=== PATIENT | female | born 2000 | race American Indian/Alaskan Native ===

== ENCOUNTER 2021-12-25 11:28 | Inpatient (IN) | payer MEDICAID ==
[2021-12-25] MEDS ORDERED: MAGNESIUM SULFATE 4 GM/100 ML BAG IV ONE ×2 (12:54→15:24)
[2021-12-25] MEDS ORDERED: hydrALAZINE 20 MG/1 ML INJ IV PRN (12:54)
[2021-12-25] MEDS ORDERED: LACTATED RINGERS 1,000 ML IV SCH (13:00)
--- NOTE | 2021-12-25 13:00 | History and Physical Report ---
History of Present Illness Date of examination: 12/25/21 Date of admission: 12/25/21 11:28 Chief complaint: sent by GREGOR here History of present illness: at 32.6wks by LMP c/w U/S and care at [facility] in [place]. Pt sent by [facility] due to elevated BP and the need to PIH evaluation. Pt admits to movement x2 earlier today but not now. Pt also denies LOF or vag bleed or headache. Pt denies contractions. Pt states she was sent by [facility] for BP eval and also due to both babies having a lot of fluid. Pt does not desire to know the sex of the babies until delivered. Past History Past Medical History: asthma, other (Sickle cell trait, Bipolar DO on no meds) Past Surgical History: no surgical history Social history: no significant social history - Obstetrical History Expected Date of Delivery: 02/13/22 Actual Gestation: 32 Week(s) 6 Day(s) : 1 Number of Living Children: 0 Medications and Allergies Allergies Allergy/AdvReac Type Severity Reaction Status Date / Time No Known Allergies Allergy Verified 12/25/21 12:32 Home Medications Medication Instructions Recorded Confirmed Last Taken Type Ferrous Sulfate [Iron 325 MG] 325 mg PO DAILY 12/25/21 12/25/21 1 Week Ago History ~12/18/21 Vit No.179/Iron/Folic 1 each PO DAILY 12/25/21 12/25/21 2 Weeks Ago History [ Tablet] ~12/11/21 Active Meds: Active Medications Betamethasone Acet/Betameth SodPhos (Betamet Acet/Betamet Na Ph 6 Mg/Ml Inj 5 Ml Mdv) 12 mg IM Q24HR MIKAYLA Stop: 12/27/21 10:01 Hydralazine HCl (Hydralazine 20 Mg/1 Ml Inj) 5 mg IV Q30MIN PRN PRN Reason: Hypertension Lactated Ringer's (Lactated Ringers) 1,000 mls @ 125 mls/hr IV DIRECT MIKAYLA Magnesium Sulfate (Magnesium Sulfate 4gm/100ml) 4 gm in 100 mls @ 300 mls/hr IV ONCE ONE Stop: 12/25/21 13:13 Magnesium Sulfate (Magnesium Sulfate 40gm/1000ml) 40 gm in 1,000 mls @ 50 mls/hr IV DIRECT MIKAYLA Labetalol HCl (Labetalol 20 Mg/4 Ml Inj) 20 mg IV ONCE ONE Stop: 12/25/21 12:55 Review of Systems All systems: negative (sent by [facility]) - Vital Signs Vital signs: Vital Signs Temp Pulse Resp BP 98.7 F 107 H 18 136/82 12/25/21 12:50 12/25/21 12:50 12/25/21 12:50 12/25/21 12:50 Temp Pulse Resp BP Pulse Ox 98.7 F 107 H 18 136/82 12/25/21 12:50 12/25/21 12:50 12/25/21 12:50 12/25/21 12:50 - Physical Exam Breasts: Positive: deferred Lungs: Positive: Normal air movement Abdomen: Positive: soft Genitourinary (Female): Positive: normal external genitalia Vagina: Positive: normal moisture Uterus: Positive: enlarged (twin gestation) Extremities: Positive: normal - Obstetrical FHR: category 1 Uterine Contraction Monitor Mode: External Cervical Dilatation: 2 (cervix soft) Cervical Effacement Percentage: 70 station: 0 Uterine Contraction Pattern: Irregular Uterine Contraction Intensity: Moderate Results Result Diagrams: 12/25/21 12:45 12/25/21 12:45 All other labs normal. Assessment and Plan Twin di/di gestation with polyhydramnios, cause unknown and elevated BP in clini c; Now in latent labor; Hypokalemia noted on labs 1. Direct admit by [facility] labs sent and 24hr protein collection started 2. Will give mag sulfate for tocolysis x24hrs until steroids received; PTL precaution given and both fetuses vtx/vtx 3. Will give colace 100mg bid stool softener 4. K-dur to replete potassium 5. Delivery plan given and pt agrees.
[2021-12-25 14:16] LABS: Basophils % (Auto) 0.2 % (0.0-1.8); Eosinophils % (Auto) 0.3 % (0.0-4.3); Hematocrit 36.2 % (30.3-42.9); Hemoglobin 11.6 gm/dl (10.1-14.3); Lymphocytes # (Auto) 1.1 K/mm3 (1.2-5.4); Lymphocytes % (Auto) 11.9 % (13.4-35.0); Mean Corpuscular HGB Conc 32 % (30-34); Mean Corpuscular Volume 80 fl (79-97); Monocytes # (Auto) 0.9 K/mm3 (0.0-0.8); Monocytes % (Auto) 10.4 % (0.0-7.3); Platelet Count 338 K/mm3 (140-440); Red Cell Distribution Width 17.1 % (13.2-15.2)
[2021-12-25 14:23] LABS: Alanine Aminotransferase 8 units/L (7-56); Albumin 3.8 g/dL (3.9-5); Blood Urea Nitrogen 3 mg/dL (7-17); Hemolysis Index 2; Uric Acid 4.1 mg/dL (3.5-7.6)
[2021-12-25 14:37] LABS: BUN/Creatinine Ratio 6
[2021-12-25] MEDS ORDERED: BETAMET ACET/BETAMET NA PH 6 MG/ML INJ 5 ML MDV IM ONE (15:24)
[2021-12-25] MEDS: BETAMET ACET/BETAMET NA PH 6 MG/ML INJ 5 ML MDV IM SCH (16:00)
[2021-12-25] MEDS: MAGNESIUM SULFATE 40GM/1000ML 40 GM/1,000 ML BAG IV SCH (16:40)
[2021-12-25] MEDS ORDERED: POTASSIUM CHLORIDE ER 20 MEQ TAB PO SCH (17:00)
[2021-12-25] MEDS ORDERED: DOCUSATE SODIUM 100 MG CAP PO PRN (18:10)
--- NOTE | 2021-12-26 01:32 | Ultrasound Report ---
US OB limited INDICATION / CLINICAL INFORMATION: jori COMPARISON: None available. TECHNIQUE: Using a transcutaneous probe, multiple grayscale, color Doppler, and spectral Doppler imag es of the uterus and fetus were captured and stored. FINDINGS: Twin A lies in cephalic position with heart rate 133 bpm. Largest vertical pocket is 7.8 cm, within normal limits. Estimated gestational age is 33 weeks 0 days with EDC of 02/13/2022 based on LMP of 05/09/2021. Twin B lies in cephalic position with heart rate 135 bpm. JORI normal measuring 7.7 cm greatest pocket. IMPRESSION: 1. Twin gestation demonstrates active heart rate and normal JORI. Signer Name: Moise Tracy II, MD Signed: 12/26/2021 1:28 AM Workstation Name: [id number]
--- NOTE | 2021-12-26 08:22 | Event Note ---
Date: 12/26/21 Mg++ level was noted to be 9.3 at 23:59 yesterday. Upon further investigation, the plater supervisor may have drawn that sample form the vein that the MgSO4 infusion was being administered. Repeat Mg++ level was 4.3. Clinically, I do not suspect magnesium toxicity.
[2021-12-26] MEDS: POTASSIUM CHLORIDE ER 20 MEQ TAB PO SCH ×3 (09:41→18:34)
[2021-12-26] MEDS ORDERED: LACTATED RINGERS 1,000 ML ONE (11:08)
[2021-12-26 14:49] LABS: Creatinine,Urine 42.1 mg/dL (0.1-20.0)
[2021-12-26] MEDS: MAGNESIUM SULFATE 40GM/1000ML 40 GM/1,000 ML BAG IV SCH (14:52)
[2021-12-26] MEDS: BETAMET ACET/BETAMET NA PH 6 MG/ML INJ 5 ML MDV IM SCH (16:53)
[2021-12-26] MEDS ORDERED: PE/MO/PET,WH 10 APPLIC/28 GM TUBE PR PRN (17:20)
[2021-12-26 20:25] VITALS: BP 135/73
[2021-12-26] MEDS ORDERED: FAMOTIDINE 20 MG TAB PO SCH (22:00)
--- NOTE | 2021-12-26 22:31 | Progress Note ---
Assessment and Plan - Patient Problems (1) 32 week prematurity Status: Acute Plan to address problem: care is up-to-date at [facility]. GBS culture is pending. The patient received betamethasone x2. (2) , twins, antepartum Status: Acute Plan to address problem: This is a twin gestation that is dichorionic/diamniotic. She is followed by maternal- medicine. Cervix has been stable at 2 cm dilated. (3) Pre-eclampsia in third trimester Status: Acute Plan to address problem: Patient's blood pressures have been <=140/90. 24 urine protein is 603 mg. Therefore, this patient fulfills the contemporary criteria for the diagnosis of preeclampsia. There are no headaches, diplopia, right upper quadrant pain, or scotomata. There are no blood pressures that are consistently >=160/110. Therefore, I do not believe that this patient has severe features. At this time, I recommend delivery at 37 weeks gestation and lieu of this new diagnosis of preeclampsia. However, if the clinical scenario changes or this patient has severe features, delivery will be earlier. Discharge home today. Follow-up with maternal- medicine next week. Subjective - Subjective Date of service: 12/26/21 Principal diagnosis: Preeclampsia Interval history: Patient's blood pressures have been <=140/90. 24 urine protein is 603 mg. Therefore, this patient fulfills the contemporary criteria for the diagnosis of preeclampsia. There are no headaches, diplopia, right upper quadrant pain, or scotomata. There are no blood pressures that are consistently >=160/110. Therefore, I do not believe that this patient has severe features. There are no contractions felt. There is good movement x2. Objective - Vital Signs Vital Signs: Vital Signs - 12hr 12/26/21 12/26/21 12/26/21 10:30 10:35 10:40 Temperature Pulse Rate 100 H 102 H 105 H Blood Pressure O2 Sat by Pulse 99 98 99 Oximetry O2 Sat by Pulse Oximetry [ Bilateral Throughout] 12/26/21 12/26/21 12/26/21 10:45 10:50 10:55 Temperature Pulse Rate 106 H 107 H 105 H Blood Pressure O2 Sat by Pulse 98 99 99 Oximetry O2 Sat by Pulse Oximetry [ Bilateral Throughout] 12/26/21 12/26/21 12/26/21 11:00 11:05 11:10 Temperature Pulse Rate 107 H 109 H 110 H Blood Pressure O2 Sat by Pulse 99 98 100 Oximetry O2 Sat by Pulse Oximetry [ Bilateral Throughout] 12/26/21 12/26/21 12/26/21 11:15 11:20 11:24 Temperature Pulse Rate 105 H 103 H 112 H Blood Pressure 139/70 O2 Sat by Pulse 99 99 Oximetry O2 Sat by Pulse Oximetry [ Bilateral Throughout] 12/26/21 12/26/21 12/26/21 11:25 11:30 11:35 Temperature Pulse Rate 102 H 107 H 105 H Blood Pressure O2 Sat by Pulse 98 98 100 Oximetry O2 Sat by Pulse Oximetry [ Bilateral Throughout] 12/26/21 12/26/21 12/26/21 11:40 11:45 11:50 Temperature Pulse Rate 106 H 102 H 103 H Blood Pressure O2 Sat by Pulse 100 100 99 Oximetry O2 Sat by Pulse Oximetry [ Bilateral Throughout] 12/26/21 12/26/21 12/26/21 11:55 12:00 12:05 Temperature Pulse Rate 106 H 111 H 107 H Blood Pressure O2 Sat by Pulse 99 100 100 Oximetry O2 Sat by Pulse Oximetry [ Bilateral Throughout] 12/26/21 12/26/21 12/26/21 12:10 12:15 12:20 Temperature Pulse Rate 117 H 108 H 104 H Blood Pressure O2 Sat by Pulse 100 99 99 Oximetry O2 Sat by Pulse Oximetry [ Bilateral Throughout] 12/26/21 12/26/21 12/26/21 12:24 12:25 12:30 Temperature Pulse Rate 108 H 99 H 106 H Blood Pressure 136/68 O2 Sat by Pulse 99 100 Oximetry O2 Sat by Pulse Oximetry [ Bilateral Throughout] 12/26/21 12/26/21 12/26/21 12:35 12:40 12:45 Temperature Pulse Rate 102 H 102 H 103 H Blood Pressure O2 Sat by Pulse 99 100 100 Oximetry O2 Sat by Pulse Oximetry [ Bilateral Throughout] 12/26/21 12/26/21 12/26/21 12:50 12:55 13:00 Temperature Pulse Rate 100 H 114 H 110 H Blood Pressure O2 Sat by Pulse 100 100 100 Oximetry O2 Sat by Pulse Oximetry [ Bilateral Throughout] 12/26/21 12/26/21 12/26/21 13:05 13:10 13:15 Temperature Pulse Rate 121 H 121 H 108 H Blood Pressure O2 Sat by Pulse 99 99 100 Oximetry O2 Sat by Pulse Oximetry [ Bilateral Throughout] 12/26/21 12/26/21 12/26/21 13:20 13:24 13:25 Temperature Pulse Rate 111 H 108 H 113 H Blood Pressure 135/77 O2 Sat by Pulse 99 100 Oximetry O2 Sat by Pulse Oximetry [ Bilateral Throughout] 12/26/21 12/26/21 12/26/21 13:30 13:35 13:40 Temperature Pulse Rate 109 H 108 H 107 H Blood Pressure O2 Sat by Pulse 100 100 100 Oximetry O2 Sat by Pulse Oximetry [ Bilateral Throughout] 12/26/21 12/26/21 12/26/21 13:45 13:50 13:55 Temperature Pulse Rate 107 H 111 H 108 H Blood Pressure O2 Sat by Pulse 100 100 100 Oximetry O2 Sat by Pulse Oximetry [ Bilateral Throughout] 12/26/21 12/26/21 12/26/21 14:00 14:05 14:10 Temperature Pulse Rate 110 H 107 H 110 H Blood Pressure O2 Sat by Pulse 100 100 100 Oximetry O2 Sat by Pulse Oximetry [ Bilateral Throughout] 12/26/21 12/26/21 12/26/21 14:15 14:20 14:25 Temperature Pulse Rate 112 H 112 H 107 H Blood Pressure 122/76 O2 Sat by Pulse 100 100 99 Oximetry O2 Sat by Pulse Oximetry [ Bilateral Throughout] 12/26/21 12/26/21 12/26/21 14:30 14:35 14:40 Temperature Pulse Rate 108 H 111 H 105 H Blood Pressure O2 Sat by Pulse 100 100 100 Oximetry O2 Sat by Pulse Oximetry [ Bilateral Throughout] 12/26/21 12/26/21 12/26/21 14:45 14:50 14:55 Temperature Pulse Rate 104 H 107 H 109 H Blood Pressure O2 Sat by Pulse 100 100 100 Oximetry O2 Sat by Pulse Oximetry [ Bilateral Throughout] 12/26/21 12/26/21 12/26/21 15:00 15:05 15:10 Temperature Pulse Rate 111 H 104 H 110 H Blood Pressure O2 Sat by Pulse 100 100 100 Oximetry O2 Sat by Pulse Oximetry [ Bilateral Throughout] 12/26/21 12/26/21 12/26/21 15:15 15:20 15:24 Temperature Pulse Rate 110 H 109 H 105 H Blood Pressure 130/78 O2 Sat by Pulse 100 100 Oximetry O2 Sat by Pulse Oximetry [ Bilateral Throughout] 12/26/21 12/26/21 12/26/21 15:25 15:30 15:35 Temperature Pulse Rate 105 H 109 H 105 H Blood Pressure O2 Sat by Pulse 100 100 100 Oximetry O2 Sat by Pulse Oximetry [ Bilateral Throughout] 12/26/21 12/26/21 12/26/21 15:40 15:45 15:50 Temperature Pulse Rate 108 H 111 H 109 H Blood Pressure O2 Sat by Pulse 100 100 100 Oximetry O2 Sat by Pulse Oximetry [ Bilateral Throughout] 12/26/21 12/26/21 12/26/21 15:55 16:00 16:05 Temperature Pulse Rate 108 H 108 H 107 H Blood Pressure O2 Sat by Pulse 100 100 100 Oximetry O2 Sat by Pulse Oximetry [ Bilateral Throughout] 12/26/21 12/26/21 12/26/21 16:10 16:15 16:20 Temperature Pulse Rate 108 H 107 H 107 H Blood Pressure O2 Sat by Pulse 100 100 100 Oximetry O2 Sat by Pulse Oximetry [ Bilateral Throughout] 12/26/21 12/26/21 12/26/21 16:24 16:25 16:30 Temperature Pulse Rate 108 H 109 H 112 H Blood Pressure 138/83 O2 Sat by Pulse 100 100 Oximetry O2 Sat by Pulse Oximetry [ Bilateral Throughout] 12/26/21 12/26/21 12/26/21 16:33 16:35 16:40 Temperature Pulse Rate 52 L 110 H 117 H Blood Pressure O2 Sat by Pulse 81 L 100 100 Oximetry O2 Sat by Pulse Oximetry [ Bilateral Throughout] 12/26/21 12/26/21 12/26/21 16:45 16:50 16:55 Temperature Pulse Rate 108 H 107 H 120 H Blood Pressure O2 Sat by Pulse 100 100 100 Oximetry O2 Sat by Pulse Oximetry [ Bilateral Throughout] 12/26/21 12/26/21 12/26/21 17:14 17:19 17:24 Temperature Pulse Rate 72 109 H 107 H Blood Pressure 134/78 O2 Sat by Pulse 79 L 100 99 Oximetry O2 Sat by Pulse Oximetry [ Bilateral Throughout] 12/26/21 12/26/21 12/26/21 17:29 17:30 17:34 Temperature Pulse Rate 104 H 104 H 102 H Blood Pressure O2 Sat by Pulse 99 89 99 Oximetry O2 Sat by Pulse Oximetry [ Bilateral Throughout] 12/26/21 12/26/21 12/26/21 17:39 17:44 17:49 Temperature Pulse Rate 109 H 102 H 107 H Blood Pressure O2 Sat by Pulse 99 100 100 Oximetry O2 Sat by Pulse Oximetry [ Bilateral Throughout] 12/26/21 12/26/21 12/26/21 17:54 17:59 18:04 Temperature Pulse Rate 109 H 108 H 105 H Blood Pressure O2 Sat by Pulse 100 99 99 Oximetry O2 Sat by Pulse Oximetry [ Bilateral Throughout] 12/26/21 12/26/21 12/26/21 18:09 18:14 18:19 Temperature Pulse Rate 109 H 109 H 113 H Blood Pressure O2 Sat by Pulse 99 100 99 Oximetry O2 Sat by Pulse Oximetry [ Bilateral Throughout] 12/26/21 12/26/21 12/26/21 18:24 18:29 18:34 Temperature Pulse Rate 113 H 108 H 119 H Blood Pressure 136/82 O2 Sat by Pulse 100 100 100 Oximetry O2 Sat by Pulse Oximetry [ Bilateral Throughout] 12/26/21 12/26/21 12/26/21 18:39 18:44 18:49 Temperature Pulse Rate 113 H 112 H 74 Blood Pressure O2 Sat by Pulse 100 100 82 L Oximetry O2 Sat by Pulse Oximetry [ Bilateral Throughout] 12/26/21 12/26/21 12/26/21 18:58 19:00 19:03 Temperature Pulse Rate 113 H Blood Pressure O2 Sat by Pulse 80 L 82 L 93 Oximetry O2 Sat by Pulse Oximetry [ Bilateral Throughout] 12/26/21 12/26/21 12/26/21 19:06 19:11 19:16 Temperature Pulse Rate 112 H 109 H 108 H Blood Pressure O2 Sat by Pulse 66 L 98 100 Oximetry O2 Sat by Pulse Oximetry [ Bilateral Throughout] 12/26/21 12/26/21 12/26/21 19:21 19:24 19:26 Temperature Pulse Rate 102 H 105 H 106 H Blood Pressure 139/84 O2 Sat by Pulse 100 100 Oximetry O2 Sat by Pulse Oximetry [ Bilateral Throughout] 12/26/21 12/26/21 12/26/21 19:31 19:36 19:41 Temperature Pulse Rate 110 H 107 H 103 H Blood Pressure O2 Sat by Pulse 100 100 99 Oximetry O2 Sat by Pulse Oximetry [ Bilateral Throughout] 12/26/21 12/26/21 12/26/21 19:46 19:51 19:56 Temperature Pulse Rate 103 H 101 H 104 H Blood Pressure O2 Sat by Pulse 99 99 99 Oximetry O2 Sat by Pulse Oximetry [ Bilateral Throughout] 12/26/21 12/26/21 12/26/21 20:01 20:06 20:11 Temperature Pulse Rate 111 H 112 H 110 H Blood Pressure O2 Sat by Pulse 99 99 100 Oximetry O2 Sat by Pulse Oximetry [ Bilateral Throughout] 12/26/21 12/26/21 12/26/21 20:16 20:21 20:24 Temperature Pulse Rate 110 H 116 H 106 H Blood Pressure 135/73 O2 Sat by Pulse 100 100 Oximetry O2 Sat by Pulse Oximetry [ Bilateral Throughout] 12/26/21 12/26/21 12/26/21 20:26 20:31 20:36 Temperature Pulse Rate 102 H 108 H 104 H Blood Pressure O2 Sat by Pulse 100 100 99 Oximetry O2 Sat by Pulse Oximetry [ Bilateral Throughout] 12/26/21 12/26/21 12/26/21 20:41 20:46 20:51 Temperature Pulse Rate 106 H 103 H 103 H Blood Pressure O2 Sat by Pulse 100 99 100 Oximetry O2 Sat by Pulse Oximetry [ Bilateral Throughout] 12/26/21 12/26/21 12/26/21 20:53 20:54 20:56 Temperature 98.8 F Pulse Rate 103 H Blood Pressure O2 Sat by Pulse 100 Oximetry O2 Sat by Pulse 99 Oximetry [ Bilateral Throughout] 12/26/21 21:01 Temperature Pulse Rate 107 H Blood Pressure O2 Sat by Pulse 100 Oximetry O2 Sat by Pulse Oximetry [ Bilateral Throughout] - Exam Breasts: normal Cardiovascular: Regular rate Lungs: Normal air movement Abdomen: Present: other (Gravid) Vulva: both: normal Uterus: Present: fundal height above umbilicus FHR: category 1 - Labs Labs: Abnormal Labs 12/25/21 12/25/21 12/25/21 12:00 12:45 12:45 MCH 26 L RDW 17.1 H Lymph % (Auto) 11.9 L [place] % (Auto) 10.4 H Lymph # (Auto) 1.1 L [place] # (Auto) 0.9 H Seg Neutrophils % 77.2 H Potassium 3.3 L BUN 3 L Creatinine 0.5 L Magnesium Alkaline Phosphatase 237 H Lactate Dehydrogenase 308 H Albumin 3.8 L Urine Creatinine Ur Total Protein 24 Hr 603.00 H Urine Total Protein 18 H 12/25/21 12/25/21 12/26/21 20:54 20:54 00:55 MCH RDW Lymph % (Auto) Izard % (Auto) Lymph # (Auto) [place] # (Auto) Seg Neutrophils % Potassium BUN Creatinine Magnesium 9.30 H 4.30 H Alkaline Phosphatase Lactate Dehydrogenase Albumin Urine Creatinine 42.1 H Ur Total Protein 24 Hr Urine Total Protein 12/26/21 06:30 MCH RDW Lymph % (Auto) [place] % (Auto) Lymph # (Auto) [place] # (Auto) Seg Neutrophils % Potassium BUN Creatinine Magnesium 4.40 H Alkaline Phosphatase Lactate Dehydrogenase Albumin Urine Creatinine Ur Total Protein 24 Hr Urine Total Protein Laboratory Results - last 24 hr 12/25/21 12/25/21 12/26/21 12:00 20:54 00:55 Magnesium 4.30 H Urine Total Volume 3350 3350 Urine Creatinine 42.1 H Height (in) 63.0 Weight (lb) 180.0 Creatinine Clearance 183 Ur Total Protein 24 Hr 603.00 H Urine Total Protein 18 H 12/26/21 06:30 Magnesium 4.40 H Urine Total Volume Urine Creatinine Height (in) Weight (lb) Creatinine Clearance Ur Total Protein 24 Hr Urine Total Protein
--- NOTE | 2021-12-26 22:40 | Discharge Summary ---
Providers - Providers Date of Admission: 12/25/21 12:54 Date of discharge: 12/26/21 Attending physician: MIKA MANCINI Maternal- medicine Primary care physician: MIKA MANCINI Hospitalization Condition: Good Pertinent studies: 24 urine protein collection is 603 mg. Procedures: None Hospital course: The patient had elevated blood pressures at her maternal- medicine specialist office. She was sent to labor and delivery to be evaluated for preeclampsia. Blood pressures were >= 140/90. There were no signs or symptoms of severe features. 24 urine protein collection was 603 mg. glucocorticoids are administered. As such, this patient fulfilled the contemporary criteria for preeclampsia. The patient was discharged home in stable condition. She is to follow-up with her maternal- medicine specialist next week. Consider [facility] preeclampsia monitoring program as an outpatient. Disposition: 01 HOME / SELF CARE / HOMELESS Final Discharge Diagnosis (Prints w/discharge instructions): 1.) 32 weeks. 2.) Twins. 3.) Preeclampsia Time spent for discharge: 29 minutes - Discharge Diagnoses (1) 32 week prematurity Status: Acute Comment: care is up-to-date at [facility]. The patient received betamethasone x2. GBS cultures pending. (2) , twins, antepartum Status: Acute Qualifiers: Multiple gestation type: dichorionic and diamniotic Qualified Code(s): O30.049 - Twin , dichorionic/diamniotic, unspecified trimester Comment: The patient is followed by maternal- medicine for twins. (3) Pre-eclampsia in third trimester Status: Acute Comment: Based on blood pressures >= 140/90 and proteinuria of 603 mg, this patient has preeclampsia. The plan is delivery at 37 weeks unless clinically indicated earlier. Core Measure Documentation - Palliative Care Palliative Care/ Comfort Measures: Not Applicable - Core Measures Any of the following diagnoses?: none - VTE Discharge Requirements Deep Vein Thrombosis/Pulmonary Embolism Present on Admission: No Has pt received <5 days of overlap therapy or INR<2.0: No Anticoagulant overlap therapy prescribed at discharge: No Contraindication No Overlap Therapy order at DC: Not Indicated - Acute UT Discharge Requirements Aspirin at discharge: No Reason for no aspirin on DC: Patient refusal KIRILL/ARB for LVSD if EF <40%: Not Applicable Reason for no KIRILL/ARB: Patient refusal Beta madhuri at discharge: No Reason for no beta madhuri on DC: Patient refusal Statin for LDL = or >100 mg/dl on DC: Not Applicable Reason for no statin on DC: Patient refusal - Heart Failure Discharge Requirements KIRILL/ARB for LVSD if EF <40%: Not Applicable Reason for no KIRILL/ARB: Patient refusal Beta madhuri at discharge: No Reason for no beta madhuri on DC: Patient refusal - Stroke Discharge Requirements Statin for LDL = or >70 mg/dl on DC: Not Applicable Reason for no statin on DC: Not Indicated Anticoag for atrial fib/atrial flutter: Not Applicable Reason for no anticoag for AF/F on DC: Not Indicated Antithrombotic for ischemic stroke: No Reason for no antithrombotic on DC: Not Indicated Exam - Constitutional Vitals: Temp Pulse Resp BP Pulse Ox 98.8 F 107 H 16 135/73 100 12/26/21 20:53 12/26/21 21:01 12/26/21 07:36 12/26/21 20:24 12/26/21 21:01 General appearance: Present: no acute distress - EENT Eyes: Present: PERRL ENT: hearing intact - Neck Neck: Present: supple, normal ROM - Respiratory Respiratory effort: normal Respiratory: bilateral: CTA - Cardiovascular Rhythm: regular - Extremities Extremities: no ischemia Peripheral Pulses: within normal limits - Abdominal General gastrointestinal: Present: soft - Rectal Rectal Exam: normal exam-external/orifice - Integumentary Integumentary: Present: clear, warm, dry - Musculoskeletal Musculoskeletal: strength equal bilaterally - Psychiatric Psychiatric: appropriate mood/affect - Neurologic Neurologic: CNII-XII intact Plan Activity: no restrictions Weight Bearing Status: Full Weight Bearing Diet: regular Special Instructions: record daily BP diary Durable Medical Equipment Needed Upon Discharge: other Care Plan Goals: Met Follow up with: MIKA MANCINI MD [Primary Care Provider] - 7 Days
== END 2021-12-26 22:39 | disposition home or self-care (01) | DRG 781 ==
LOC: LD 11:28 → UNDOADMIN 11:28 → LD 12:54
PROVIDERS: ADMIT Obstetrics & Gynecology; ATTEND Obstetrics & Gynecology
DX: O14.93 Unspecified pre-eclampsia, third trimester (principal); Z20.822 Contact with and (suspected) exposure to COVID-19; O40.3XX0 Polyhydramnios, third trimester, not applicable or unspecified; O13.3 Gestational [pregnancy-induced] hypertension without significant proteinuria, third trimester; O30.043 Twin pregnancy, dichorionic/diamniotic, third trimester; Z3A.32 32 weeks gestation of pregnancy
CPT/HCPCS: 36415; 76815; 80053; 82565; 82570; 82575; 83036; 83615; 83735; 84156; 84550; 85025; G0378; J0702; J3475; J7120; U0003